=== PATIENT | male | born 1955 | race Caucasian/White ===

== ENCOUNTER 2018-02-12 15:03 | Inpatient (IN) | payer OTHER ==
[2018-02-12 16:55] VITALS: BMI 35.6
--- NOTE | 2018-02-12 19:45 | HP ---
CIWA Score - CIWA Score Nausea/Vomitin-No Nausea/No Vomiting Muscle Tremors: 2 Anxiety: 3 Agitation: 1-Slight > Activity Paroxysmal Sweats: 2 Orientation: 0-Oriented Tacttile Disturbances: 2-Mild Itch/Numbness/Burn (numbness on both hands) Auditory Disturbances: 1-Very Mild Visual Disturbances: 1-Very Mild Sensitivity Headache: 0-None Present CIWA-Ar Total Score: 12 Admission ROS S - HPI Chief Complaint: "I am here for detox" Allergies/Adverse Reactions: Allergies Allergy/AdvReac Type Severity Reaction Status Date / Time No Known Allergies Allergy Verified 02/12/18 18:18 History of Present Illness: 62 yo male with hx of alcohol, cocaine and nicotine dependence is here seeking detox. PMHX: OA (right knee), anxiety, depression, PSTD, Insomnia. Denies suicidal / homicidal ideation. Denies hx of suicide attempts but reports has had suicidal thoughts in the past. Last detox 4 months ago at [facility]. Longest period of sobriety 2 months. Search Terms: Jhonathan Ibrahim, 1955 Search Date: 02/12/2018 07:39:07 PM This report was requested by: Penelope Calderon | Reference #: [id number] Others' Prescriptions Patient Name: Jhonathan Ibrahim Date: 1955 Address: [address] [facility] [address] [place] [id number] Sex: Male Rx Written Rx Dispensed Drug Quantity Days Supply Prescriber Name 02/01/2018 02/01/2018 clonazepam 2 mg tablet 60 30 Pacannuayan, Joana 01/01/2018 01/01/2018 clonazepam 2 mg tablet 60 30 Pacannuayan, Joana 11/30/2017 11/30/2017 clonazepam 2 mg tablet 60 30 Pacannuayan, Joana 11/02/2017 11/02/2017 clonazepam 2 mg tablet 60 30 Pacannuayan, Joana 03/14/2017 03/14/2017 clonazepam 1 mg tablet 60 30 Pacannuayan, Joana Patient Name: Jhonathan Ibrahim Date: 1955 Address: [address] [place] [address] Sex: Male Rx Written Rx Dispensed Drug Quantity Days Supply Prescriber Name 09/27/2017 10/01/2017 clonazepam 2 mg tablet 60 30 Clayton Montes MD 08/28/2017 09/01/2017 clonazepam 2 mg tablet 60 30 Clayton Montes MD 08/28/2017 09/01/2017 zolpidem tartrate 10 mg tablet 30 30 Clayton Montes MD 07/26/2017 08/01/2017 zolpidem tartrate 10 mg tablet 30 30 Clayton Montes MD 07/26/2017 08/01/2017 clonazepam 2 mg tablet 60 30 Clayton Montes MD 07/03/2017 07/03/2017 clonazepam 2 mg tablet 60 30 JarekellaClayton diane MD 07/03/2017 07/03/2017 zolpidem tartrate 10 mg tablet 30 30 Clayton Montes MD 05/29/2017 06/06/2017 clonazepam 2 mg tablet 60 30 Clayton Montes MD 05/09/2017 05/09/2017 clonazepam 2 mg tablet 60 30 Clayton Montes MD 04/10/2017 04/10/2017 clonazepam 2 mg tablet 60 30 Clayton Montes MD 02/28/2017 02/28/2017 clonazepam 2 mg tablet 30 15 Clayton Montes MD Exam Limitations: No Limitations - Ebola screening Have you traveled outside of the country in the last 21 days: No Have you had contact with anyone from an Ebola affected area: No Have you been sick,other than usual withdrawal symptoms: No Do you have a fever: No - Review of Systems Constitutional: Chills, Changes in sleep, Other (weight gain) EENT: reports: Blurred Vision (wears glasses) Respiratory: reports: No Symptoms reported Cardiac: reports: No Symptoms Reported GI: reports: Other (hx lower intestinal ulcer 2 months ago tx at [facility]) : reports: No Symptoms Reported Musculoskeletal: reports: Back Pain, Joint Pain Integumentary: reports: Pruritus (under breast) Neuro: reports: Headache, Numbness (both hands) Endocrine: reports: Increased Thirst Hematology: reports: See HPI, Anemia (r/t to alcohol intake) Psychiatric: reports: Orientated x3, Depressed Other Systems: Reviewed and Negative Patient History - Patient Medical History Hx Anemia: Yes Hx Asthma: No Hx Chronic Obstructive Pulmonary Disease (COPD): No Hx Cancer: No Hx Cardiac Disorders: No Hx Congestive Heart Failure: No Hx Hypertension: No Hx Hypercholesterolemia: No Hx Pacemaker: No HX Cerebrovascular Accident: No Hx Seizures: No Hx Dementia: No Hx Diabetes: No Hx Gastrointestinal Disorders: No Hx Liver Disease: No Hx Genitourinary Disorders: No Hx Sexually Transmitted Disorders: No Hx Renal Disease (ESRD): No Hx Thyroid Disease: No Hx Human Immunodeficiency Virus (HIV): No (last tested 6 months ago, declines ) Hx Hepatitis C: No Hx Depression: Yes Hx Suicide Attempt: No Hx Bipolar Disorder: No Hx Schizophrenia: No - Patient Surgical History Past Surgical History: No Hx Neurologic Surgery: No Hx Cataract Extraction: No Hx Cardiac Surgery: No Hx Lung Surgery: No Hx Breast Surgery: No Hx Breast Biopsy: No Hx Abdominal Surgery: No Hx Appendectomy: No Hx Cholecystectomy: No Hx Genitourinary Surgery: No Hx Section: No Hx Orthopedic Surgery: Yes (right hand tendon release ) Anesthesia Reaction: No - PPD History Previous Implant?: Yes Documented Results: Negative w/o proof PPD to be Administered?: Yes - Reproductive History Patient is a Female of Child Bearing Age (11 -55 yrs old): No - Smoking Cessation Smoking history: Current every day smoker Aproximately how many cigarettes per day: 1 Hx Chewing Tobacco Use: No Initiated information on smoking cessation: Yes 'Breaking Loose' booklet given: 02/12/18 - Substance & Tx. History Hx Alcohol Use: Yes Hx Substance Use: Yes Substance Use Type: Alcohol Hx Substance Use Treatment: Yes (ast detox 4 months ago at [facility]) - Substances Abused Alcohol Route: Oral Frequency: Daily Amount used: liquor- 2 pint, Age of first use: 37 Date of Last Use: 02/11/18 Cocaine Route: Smoking Frequency: Daily Amount used: 1gm Age of first use: 34 Date of Last Use: 02/11/18 Family Disease History - Family Disease History Family Disease History: Heart Disease: Father (, [place] ), Other: Father, Mother (, unkown ) Admission Physical Exam BHS - Vital Signs Vital Signs: Vital Signs - 24 hr 02/12/18 16:54 Temperature 98.3 F Pulse Rate 70 Respiratory 18 Rate Blood Pressure 126/67 - Physical General Appearance: Yes: Nourished, Appropriately Dressed, Mild Distress, Irritable, Anxious HEENTM: Yes: EOMI, Hearing grossly Normal, Normal ENT Inspection, Normocephalic , Normal Voice, MIKEY, Pharynx Normal, Tm's normal Respiratory: Yes: Chest Non-Tender, Lungs Clear, Normal Breath Sounds, No Respiratory Distress, No Accessory Muscle Use Neck: Yes: No masses,lesions,Nodules, Trachea in good position Breast: Yes: Breast Exam Deferred Cardiology: Yes: Regular Rhythm, Regular Rate Abdominal: Yes: Normal Bowel Sounds, Non Tender, Soft, Protuberent Genitourinary: Yes: Within Normal Limits Back: Yes: Normal Inspection Musculoskeletal: Yes: full range of Motion, Gait Steady, Pelvis Stable, Back pain, Other (right knee pain) Extremities: Yes: Normal Capillary Refill, Normal Inspection, Normal Range of Motion, Non-Tender Neurological: Yes: casework manager II-XII NML intact, Fully Oriented, Alert, Motor Strength 5/5, Normal Mood/Affect Integumentary: Yes: Normal Color, Warm, Moist Lymphatic: Yes: Within Normal Limits - Diagnostic (1) Alcohol dependence with withdrawal Current Visit: Yes Status: Acute Qualifiers: Complication of substance-induced condition: uncomplicated Qualified Code(s ): F10.230 - Alcohol dependence with withdrawal, uncomplicated (2) Back pain Current Visit: Yes Status: Acute Qualifiers: Back pain location: low back pain Chronicity: unspecified Back pain laterality: midline Sciatica presence: without sciatica Qualified Code(s): M54.5 - Low back pain (3) Right knee pain Current Visit: Yes Status: Chronic Qualifiers: Chronicity: chronic Qualified Code(s): M25.561 - Pain in right knee; G89.29 - Other chronic pain; G89.29 - Other chronic pain (4) Cocaine dependence Current Visit: Yes Status: Acute (5) Obese Current Visit: Yes Status: Chronic Qualifiers: Obesity type: unspecified obesity type Obesity classification: adult class 2 (BMI 35 - 39.9) Serious obesity comorbidity presence: unspecified whether serious comorbidity present Cleared for Admission [facility] - Detox or Rehab [facility] Level of Care: Medically Managed Detox Regimen/Protocol: Librium [facility] Breath Alcohol Content Breath Alcohol Content: 0 Urine Drug Screen - Results Drug Screen Negative: No Urine Drug Screen Results: JOE-Cocaine
[2018-02-12] MEDS ORDERED: MAGNESIUM CITRATE 300 ML BOTTLE PO PRN (19:52)
[2018-02-12] MEDS ORDERED: P-EPHED 60MG/TRIPROLIDI 2.5MG TABLET PO PRN (19:52)
[2018-02-12] MEDS ORDERED: NICOTINE POLACRILEX 2 MG GUM BC PRN (19:52)
[2018-02-12] MEDS ORDERED: chlordiazePOXIDE HCL 25 MG CAPSULE PO PRN (19:52)
[2018-02-12] MEDS ORDERED: ACETAMINOPHEN 325 MG TABLET (FP) PO PRN (19:52)
[2018-02-12] MEDS ORDERED: guaiFENesin/D-METHORPHAN HB 10 ML UNIT-DOSE CUPS PO PRN (19:52)
[2018-02-12] MEDS ORDERED: MENTHOL/PHENOL 1 EACH UD MM PRN (19:52)
[2018-02-12] MEDS ORDERED: MAGNESIUM HYDROX 2400MG/30ML ORAL SUSPENSION 30 ML CUP PO PRN (19:52)
[2018-02-12] MEDS ORDERED: IBUPROFEN 400 MG TABLET (FP) PO PRN (19:52)
[2018-02-12] MEDS ORDERED: hydrOXYzine PAMOATE 50 MG CAPSULE (FP) PO PRN (19:52)
[2018-02-12] MEDS ORDERED: LOPERAMIDE HCL 2 MG CAPSULE PO PRN (19:52)
[2018-02-12] MEDS ORDERED: chlordiazePOXIDE HCL 25 MG CAPSULE PO ONE (19:52)
[2018-02-12] MEDS ORDERED: MELATONIN 5 MG TABLETS PO PRN (22:00)
[2018-02-12] MEDS: THIAMINE HCL 100 MG TABLET (FP) PO SCH (22:08)
[2018-02-12] MEDS: chlordiazePOXIDE HCL 25 MG CAPSULE PO SCH (22:08)
[2018-02-12] MEDS: METHYL SALICYLATE/MENTHOL OINT 30 GM TUBE TP SCH (22:09)
[2018-02-12 22:57] LABS: URINE APPEARANCE TURBID; URINE BILIRUBIN NEGATIVE (<2.0 mg/dL); URINE COLOR AMBER; URINE GLUCOSE (UA) NEGATIVE (NEGATIVE); URINE KETONE NEGATIVE (NEGATIVE); URINE LEUK ESTERASE NEGATIVE (NEGATIVE); URINE NITRITE NEGATIVE (NEGATIVE); URINE PROTEIN NEGATIVE (NEGATIVE); URINE UROBILINOGEN NEGATIVE mg/dL (0.2-1.0)
[2018-02-13] MEDS: MAG HYDROX/AL HYDROX/SIMETH 30 ML UNIT-DOSE CUP PO PRN ×2 (06:06→14:58)
[2018-02-13] MEDS: chlordiazePOXIDE HCL 25 MG CAPSULE PO SCH ×4 (06:06→22:14)
[2018-02-13] MEDS ORDERED: PANTOPRAZOLE 40 MG TABLET (FP) PO SCH (10:00)
[2018-02-13 10:12] LABS: HEMATOCRIT 41.5 % (35.4-49); HEMOGLOBIN 13.7 GM/dL (11.7-16.9); MCH 31.1 pg (25.7-33.7); MEAN CELL VOLUME 94.2 fl (80-96); MEAN PLT VOLUME 8.8 fl (7.5-11.1); PLATELET COUNT 263 K/MM3 (134-434); RBC 4.41 M/mm3 (4.00-5.60); RDW 15.5 % (11.9-15.9); WHITE BLOOD COUNT 8.2 K/mm3 (4.0-10.0)
--- NOTE | 2018-02-13 10:13 | PN ---
S CIWA - CIWA Score Nausea/Vomitin-No Nausea/No Vomiting Muscle Tremors: 4-Moderate,w/Arms Extend Anxiety: 4-Mod. Anxious/Guarded Agitation: 4-Moderately Restless Paroxysmal Sweats: 1-Minimal Palms Moist Orientation: 0-Oriented Tacttile Disturbances: 0-None Auditory Disturbances: 0-None Visual Disturbances: 0-None Headache: 0-None Present CIWA-Ar Total Score: 13 BHS Progress Note (SOAP) Subjective: ANXIETY,SWEATS,TREMORS. Objective: 02/13/18 10:12 Vital Signs 02/13/18 02/13/18 02/13/18 03:30 06:09 09:00 Temperature 96.8 F L 96.9 F L Pulse Rate 59 L 69 Respiratory 18 18 18 Rate Blood Pressure 104/69 132/85 Laboratory Tests 02/12/18 22:49 Urine Color Kayy Urine Appearance Turbid Urine pH 5.0 Ur Specific [place] 1.025 Urine Protein Negative Urine Glucose (UA) Negative Urine Ketones Negative Urine Blood Negative Urine Nitrite Negative Urine Bilirubin Negative Urine Urobilinogen Negative Ur Leukocyte Esterase Negative OTHER LABS PENDING Assessment: 02/13/18 10:12 WITHDRAWAL SX Plan: CONTINUE DETOX
[2018-02-13 10:25] LABS: CHLORIDE 107 mmol/L (98-107); POTASSIUM 4.3 mmol/L (3.5-5.1); SODIUM 142 mmol/L (136-145)
[2018-02-13] MEDS: METHYL SALICYLATE/MENTHOL OINT 30 GM TUBE TP SCH ×2 (10:33→22:16)
[2018-02-13] MEDS: PRENATAL VITAMINS W/ FOLIC ACID TABLET (FP) PO SCH (10:33)
[2018-02-13 10:44] LABS: ALBUMIN 3.3 g/dl (3.4-5.0); ALK PHOS 85 U/L (45-117); ANION GAP 7 (8-16); BILIRUBIN,TOTAL 0.3 mg/dL (0.2-1.0); BLOOD UREA NITROGEN 18 mg/dL (7-18); CALCIUM 8.4 mg/dL (8.5-10.1); CO2 28 mmol/L (21-32); CREATININE 1.2 mg/dL (0.7-1.3); GLUCOSE,RANDOM 117 mg/dL (74-106); SGOT/AST 23 U/L (15-37); SGPT/ALT 29 U/L (12-78); TOT PROT 6.8 g/dl (6.4-8.2)
--- NOTE | 2018-02-13 12:01 | EKG ---
Test Reason : Blood Pressure : / mmHG Vent. Rate : 065 BPM Atrial Rate : 065 BPM P-R Int : 134 ms QRS Dur : 090 ms QT Int : 412 ms P-R-T Axes : 041 040 027 degrees QTc Int : 428 ms NORMAL SINUS RHYTHM NORMAL ECG NO PREVIOUS ECGS AVAILABLE Confirmed by MD ISABEL, DON ([id number]) on 02/13/2018 12:00:37 PM Referred By: Confirmed By:DON HALL MD
--- NOTE | 2018-02-13 17:22 | PN ---
BHS Progress Note Note: Patient c/o gastric reflux and no relief with protonix 40mg. start Zantac 150 mg BID Increase fluids continue to monitor
--- NOTE | 2018-02-13 17:24 | CONSULT ---
[facility] Psychiatric Consult - Data Date of interview: 02/13/18 Admission source: [facility] Identifying data: First admission to [facility] for this 62 y/o male seeking detox treatment on for alcohol and cocaine dependence.Patient is single without children,domiciled,unemployed and supported on Public Assistance. Substance Abuse History: Confirmed by patient in this session.Smoking history: Current every day smoker. Aproximately how many cigarettes per day: 1. Hx Chewing Tobacco Use: No. Initiated information on smoking cessation: Yes. ' Breaking Loose' booklet given: 02/12/18. - Substance & Tx. History. Hx Alcohol Use: Yes. Hx Substance Use: Yes. Substance Use Type: Alcohol. Hx Substance Use Treatment: Yes (ast detox 4 months ago at [facility]). - Substances Abused. Alcohol. Route: Oral. Frequency: Daily. Amount used: liquor- 2 pint,. Age of first use: 37. Date of Last Use: 02/11/18. Cocaine. Route: Smoking. Frequency: Daily. Amount used: 1gm. Age of first use: 34. Date of Last Use: 02/11/18 Medical History: GERD,gastric ulcer and arthritis of right knee. Psychiatric History: Past psychiatric hospitalizations at [facility].Diagnosed with Stress Disorder.Prescribed seroquel 100 mg/hs + klonopin ( dose not recalled).Mr Ibrahim is seen for medication management by a private psychiatrist in [facility].One suicide about six years ago via deliberate self- exposure to oncoming traffic. Physical/Sexual Abuse/Trauma History: Patient denies. Additional Comment: Urine Drug Screen Results: JOE-Cocaine.Noted. Mental Status Exam - Mental Status Exam Alert and Oriented to: Time, Place, Person Cognitive Function: Good Patient Appearance: Well Groomed Mood: Nervous, Withdrawn, Anxious Affect: Mood Congruent Patient Behavior: Fatigued, Appropriate, Cooperative Speech Pattern: Clear, Appropriate Voice Loudness: Normal Thought Process: Intact, Goal Oriented Thought Disorder: Not Present Hallucinations: Denies Suicidal Ideation: Denies Homicidal Ideation: Denies Insight/Judgement: Poor Sleep: Poorly, Difficulty falling asleep Appetite: Good Muscle strength/Tone: Normal Gait/Station: Normal Psychiatric Findings - Problem List ([place] 1, 2,3) (1) Alcohol dependence with withdrawal Current Visit: Yes Status: Acute Qualifiers: Complication of substance-induced condition: uncomplicated Qualified Code(s ): F10.230 - Alcohol dependence with withdrawal, uncomplicated (2) Cocaine dependence Current Visit: Yes Status: Acute Qualifiers: Substance use status: uncomplicated Qualified Code(s): F14.20 - Cocaine dependence, uncomplicated (3) Substance induced mood disorder Current Visit: Yes Status: Acute (4) Insomnia Current Visit: Yes Status: Acute - Initial Treatment Plan Initial Treatment Plan: Psychoeducation.Sleep hygiene.Detoxification in progress.Seroquel 100 mg po hs.Side effects/benefits discussed with the patient.Mr Ibrahim agrees with this careplan.Observation.
[2018-02-13] MEDS: RANITIDINE HCL 150 MG TABLET (FP) PO SCH ×2 (17:40→22:14)
[2018-02-13] MEDS: THIAMINE HCL 100 MG TABLET (FP) PO SCH (22:14)
[2018-02-13] MEDS: QUEtiapine FUMARATE 100 MG TABLET (FP) PO SCH (22:15)
[2018-02-14] MEDS: chlordiazePOXIDE HCL 25 MG CAPSULE PO SCH ×3 (05:34→17:50)
[2018-02-14] MEDS: PRENATAL VITAMINS W/ FOLIC ACID TABLET (FP) PO SCH (10:12)
[2018-02-14] MEDS: RANITIDINE HCL 150 MG TABLET (FP) PO SCH ×2 (10:12→22:07)
[2018-02-14] MEDS: METHYL SALICYLATE/MENTHOL OINT 30 GM TUBE TP SCH ×2 (10:12→22:07)
--- NOTE | 2018-02-14 10:45 | PN ---
S CIWA - CIWA Score Nausea/Vomitin (DIARRHEA) Muscle Tremors: 4-Moderate,w/Arms Extend Anxiety: 4-Mod. Anxious/Guarded Agitation: 4-Moderately Restless Paroxysmal Sweats: 1-Minimal Palms Moist Orientation: 0-Oriented Tacttile Disturbances: 0-None Auditory Disturbances: 0-None Visual Disturbances: 0-None Headache: 0-None Present CIWA-Ar Total Score: 16 BHS Progress Note (SOAP) Subjective: ANXIETY, SWEATS,DIARRHEA. Objective: 02/14/18 10:44 Vital Signs 02/14/18 02/14/18 02/14/18 03:30 06:11 06:30 Temperature 96.9 F L Pulse Rate 63 Respiratory 18 16 18 Rate Blood Pressure 118/69 02/14/18 09:26 Temperature 95.8 F L Pulse Rate 66 Respiratory 20 Rate Blood Pressure 132/77 Laboratory Tests 02/12/18 02/13/18 02/13/18 22:49 07:00 07:00 WBC 8.2 RBC 4.41 Hgb 13.7 Hct 41.5 MCV 94.2 MCH 31.1 MCHC 33.0 RDW 15.5 Plt Count 263 MPV 8.8 Sodium 142 Potassium 4.3 Chloride 107 Carbon Dioxide 28 Anion Gap 7 L BUN 18 Creatinine 1.2 Creat Clearance w eGFR > 60 Random Glucose 117 H Calcium 8.4 L Total Bilirubin 0.3 AST 23 ALT 29 Alkaline Phosphatase 85 Total Protein 6.8 Albumin 3.3 L Urine Color Kayy Urine Appearance Turbid Urine pH 5.0 Ur Specific [place] 1.025 Urine Protein Negative Urine Glucose (UA) Negative Urine Ketones Negative Urine Blood Negative Urine Nitrite Negative Urine Bilirubin Negative Urine Urobilinogen Negative Ur Leukocyte Esterase Negative RPR Titer 02/13/18 07:00 WBC RBC Hgb Hct MCV MCH MCHC RDW Plt Count MPV Sodium Potassium Chloride Carbon Dioxide Anion Gap BUN Creatinine Creat Clearance w eGFR Random Glucose Calcium Total Bilirubin AST ALT Alkaline Phosphatase Total Protein Albumin Urine Color Urine Appearance Urine pH Ur Specific [place] Urine Protein Urine Glucose (UA) Urine Ketones Urine Blood Urine Nitrite Urine Bilirubin Urine Urobilinogen Ur Leukocyte Esterase RPR Titer Nonreactive Assessment: 02/14/18 10:44 WITHDRAWAL SX Plan: CONTINUE DETOX IMODIUM PRN FBS X 2 R/O HYPERGLYCEMIA
[2018-02-14] MEDS: MAG HYDROX/AL HYDROX/SIMETH 30 ML UNIT-DOSE CUP PO PRN (15:22)
[2018-02-14] MEDS: chlordiazePOXIDE 5 MG CAPSULE PO SCH (22:07)
[2018-02-14] MEDS: QUEtiapine FUMARATE 100 MG TABLET (FP) PO SCH (22:08)
[2018-02-14] MEDS: THIAMINE HCL 100 MG TABLET (FP) PO SCH (22:08)
[2018-02-15] MEDS: chlordiazePOXIDE 5 MG CAPSULE PO SCH ×3 (05:15→18:34)
[2018-02-15] MEDS: RANITIDINE HCL 150 MG TABLET (FP) PO SCH ×2 (10:33→22:08)
[2018-02-15] MEDS: METHYL SALICYLATE/MENTHOL OINT 30 GM TUBE TP SCH ×2 (10:34→22:07)
[2018-02-15] MEDS: PRENATAL VITAMINS W/ FOLIC ACID TABLET (FP) PO SCH (10:34)
--- NOTE | 2018-02-15 10:34 | PN ---
BHS Progress Note (SOAP) Subjective: PT REPORTS DECREASED ANXIETY,SWEATS,TREMORS.ALERT O X 3. Objective: 02/15/18 10:33 Vital Signs 02/15/18 02/15/18 02/15/18 03:30 05:50 06:30 Temperature 98.2 F Pulse Rate 62 Respiratory 18 18 18 Rate Blood Pressure 109/65 02/15/18 09:09 Temperature 98.6 F Pulse Rate 70 Respiratory 18 Rate Blood Pressure 117/77 Laboratory Tests 02/12/18 02/13/18 02/13/18 22:49 07:00 07:00 WBC 8.2 RBC 4.41 Hgb 13.7 Hct 41.5 MCV 94.2 MCH 31.1 MCHC 33.0 RDW 15.5 Plt Count 263 MPV 8.8 Sodium 142 Potassium 4.3 Chloride 107 Carbon Dioxide 28 Anion Gap 7 L BUN 18 Creatinine 1.2 Creat Clearance w eGFR > 60 POC Glucometer Random Glucose 117 H Calcium 8.4 L Total Bilirubin 0.3 AST 23 ALT 29 Alkaline Phosphatase 85 Total Protein 6.8 Albumin 3.3 L Urine Color Kayy Urine Appearance Turbid Urine pH 5.0 Ur Specific [place] 1.025 Urine Protein Negative Urine Glucose (UA) Negative Urine Ketones Negative Urine Blood Negative Urine Nitrite Negative Urine Bilirubin Negative Urine Urobilinogen Negative Ur Leukocyte Esterase Negative RPR Titer 02/13/18 02/15/18 07:00 05:15 WBC RBC Hgb Hct MCV MCH MCHC RDW Plt Count MPV Sodium Potassium Chloride Carbon Dioxide Anion Gap BUN Creatinine Creat Clearance w eGFR POC Glucometer 93 Random Glucose Calcium Total Bilirubin AST ALT Alkaline Phosphatase Total Protein Albumin Urine Color Urine Appearance Urine pH Ur Specific [place] Urine Protein Urine Glucose (UA) Urine Ketones Urine Blood Urine Nitrite Urine Bilirubin Urine Urobilinogen Ur Leukocyte Esterase RPR Titer Nonreactive Assessment: 02/15/18 10:33 MILD WITHDRAWAL SX Plan: CONTINUE DETOX
[2018-02-15] MEDS: THIAMINE HCL 100 MG TABLET (FP) PO SCH (22:07)
[2018-02-15] MEDS: QUEtiapine FUMARATE 100 MG TABLET (FP) PO SCH (22:08)
[2018-02-15] MEDS: chlordiazePOXIDE HCL 10 MG CAPSULE PO SCH (22:08)
[2018-02-16] MEDS: chlordiazePOXIDE HCL 10 MG CAPSULE PO SCH ×2 (05:59→10:10)
[2018-02-16 09:39] VITALS: BP 120/73; PULSE 86; TEMP 96.4
[2018-02-16] MEDS: METHYL SALICYLATE/MENTHOL OINT 30 GM TUBE TP SCH (10:10)
[2018-02-16] MEDS: PRENATAL VITAMINS W/ FOLIC ACID TABLET (FP) PO SCH (10:10)
[2018-02-16] MEDS: RANITIDINE HCL 150 MG TABLET (FP) PO SCH (10:10)
--- NOTE | 2018-02-16 10:20 | PN ---
BHS Progress Note (SOAP) Subjective: DETOX COMPLETED. ALERT O X 3. NAD. PT STATES HE IS GOING HOME FIRST TODAY AND WILL CALL FOR BED AVAILABILITY LATER. Objective: 02/16/18 10:19 Vital Signs 02/16/18 02/16/18 06:12 09:39 Temperature 96.8 F L 96.4 F L Pulse Rate 67 86 Respiratory 20 20 Rate Blood Pressure 91/62 120/73 Laboratory Tests 02/12/18 02/13/18 02/13/18 22:49 07:00 07:00 WBC 8.2 RBC 4.41 Hgb 13.7 Hct 41.5 MCV 94.2 MCH 31.1 MCHC 33.0 RDW 15.5 Plt Count 263 MPV 8.8 Sodium 142 Potassium 4.3 Chloride 107 Carbon Dioxide 28 Anion Gap 7 L BUN 18 Creatinine 1.2 Creat Clearance w eGFR > 60 POC Glucometer Random Glucose 117 H Calcium 8.4 L Total Bilirubin 0.3 AST 23 ALT 29 Alkaline Phosphatase 85 Total Protein 6.8 Albumin 3.3 L Urine Color Kayy Urine Appearance Turbid Urine pH 5.0 Ur Specific [place] 1.025 Urine Protein Negative Urine Glucose (UA) Negative Urine Ketones Negative Urine Blood Negative Urine Nitrite Negative Urine Bilirubin Negative Urine Urobilinogen Negative Ur Leukocyte Esterase Negative RPR Titer 02/13/18 02/15/18 07:00 05:15 WBC RBC Hgb Hct MCV MCH MCHC RDW Plt Count MPV Sodium Potassium Chloride Carbon Dioxide Anion Gap BUN Creatinine Creat Clearance w eGFR POC Glucometer 93 Random Glucose Calcium Total Bilirubin AST ALT Alkaline Phosphatase Total Protein Albumin Urine Color Urine Appearance Urine pH Ur Specific [place] Urine Protein Urine Glucose (UA) Urine Ketones Urine Blood Urine Nitrite Urine Bilirubin Urine Urobilinogen Ur Leukocyte Esterase RPR Titer Nonreactive Assessment: 02/16/18 10:19 MEDICALLY STABLE Plan: CONTINUE DETOX F/U WITH REHAB REFERRAL
--- NOTE | 2018-02-16 10:25 | DS ---
[facility] Detox Discharge Summary Admission Date: 02/12/18 Discharge Date: 02/16/18 - History Present History: Alcohol Dependence, Cocaine Dependence Additional Comments: DETOX COMPLETED. ALERT O X 3. NAD.PT REPORTS HE HAS PCP AT [address] WITH PMD DR[address] NORTON"(UNABLE TO REMEMBER COMPLETE NAMES OF CLINIC AND PMD). Pertinent Past History: PLEASE SE DX BELOW - Physical Exam Results Vital Signs: Vital Signs Temperature 96.4 F L 02/16/18 09:39 Pulse Rate 86 02/16/18 09:39 Respiratory Rate 20 02/16/18 09:39 Blood Pressure 120/73 02/16/18 09:39 O2 Sat by Pulse Oximetry (%) Pertinent Admission Physical Exam Findings: WITHDRAWAL SX Laboratory Tests 02/12/18 02/13/18 02/13/18 22:49 07:00 07:00 WBC 8.2 RBC 4.41 Hgb 13.7 Hct 41.5 MCV 94.2 MCH 31.1 MCHC 33.0 RDW 15.5 Plt Count 263 MPV 8.8 Sodium 142 Potassium 4.3 Chloride 107 Carbon Dioxide 28 Anion Gap 7 L BUN 18 Creatinine 1.2 Creat Clearance w eGFR > 60 POC Glucometer Random Glucose 117 H Calcium 8.4 L Total Bilirubin 0.3 AST 23 ALT 29 Alkaline Phosphatase 85 Total Protein 6.8 Albumin 3.3 L Urine Color Kayy Urine Appearance Turbid Urine pH 5.0 Ur Specific [place] 1.025 Urine Protein Negative Urine Glucose (UA) Negative Urine Ketones Negative Urine Blood Negative Urine Nitrite Negative Urine Bilirubin Negative Urine Urobilinogen Negative Ur Leukocyte Esterase Negative RPR Titer 02/13/18 02/15/18 07:00 05:15 WBC RBC Hgb Hct MCV MCH MCHC RDW Plt Count MPV Sodium Potassium Chloride Carbon Dioxide Anion Gap BUN Creatinine Creat Clearance w eGFR POC Glucometer 93 Random Glucose Calcium Total Bilirubin AST ALT Alkaline Phosphatase Total Protein Albumin Urine Color Urine Appearance Urine pH Ur Specific [place] Urine Protein Urine Glucose (UA) Urine Ketones Urine Blood Urine Nitrite Urine Bilirubin Urine Urobilinogen Ur Leukocyte Esterase RPR Titer Nonreactive - Medication Discharge Medications: Ambulatory Orders Omeprazole 20 mg PO DAILY 02/12/18 Quetiapine Fumarate [Seroquel -] 100 mg PO HS 02/12/18 Quetiapine Fumarate [Seroquel] 100 mg PO HS #30 tablet 02/14/18 - Diagnosis (1) Alcohol dependence with withdrawal Status: Acute Qualifiers: Complication of substance-induced condition: uncomplicated Qualified Code(s ): F10.230 - Alcohol dependence with withdrawal, uncomplicated (2) Back pain Status: Acute Qualifiers: Back pain location: low back pain Chronicity: unspecified Back pain laterality: midline Sciatica presence: without sciatica Qualified Code(s): M54.5 - Low back pain (3) Cocaine dependence Status: Acute Qualifiers: Substance use status: uncomplicated Qualified Code(s): F14.20 - Cocaine dependence, uncomplicated (4) Obese Status: Chronic Qualifiers: Obesity type: unspecified obesity type Obesity classification: adult class 2 (BMI 35 - 39.9) Serious obesity comorbidity presence: unspecified whether serious comorbidity present (5) Right knee pain Status: Chronic Qualifiers: Chronicity: chronic Qualified Code(s): M25.561 - Pain in right knee; G89.29 - Other chronic pain; G89.29 - Other chronic pain - AMA Did Patient Leave Against Medical Advice: No
--- NOTE | 2018-02-16 10:27 | DS ---
[facility] Detox Discharge Summary Admission Date: 02/12/18 - Physical Exam Results Vital Signs: Vital Signs Temperature 96.4 F L 02/16/18 09:39 Pulse Rate 86 02/16/18 09:39 Respiratory Rate 20 02/16/18 09:39 Blood Pressure 120/73 02/16/18 09:39 O2 Sat by Pulse Oximetry (%) - Treatment Hospital Course: Detox Protocol Followed, Detoxed Safely, Responded well, Discharged Condition Good, Rehab Referral Accepted Patient has Accepted a Rehab Referral to: [facility] - Medication Discharge Medications: Ambulatory Orders Omeprazole 20 mg PO DAILY 02/12/18 Quetiapine Fumarate [Seroquel -] 100 mg PO HS 02/12/18 Quetiapine Fumarate [Seroquel] 100 mg PO HS #30 tablet 02/14/18 - Diagnosis (1) Alcohol dependence with withdrawal Status: Acute Qualifiers: Complication of substance-induced condition: uncomplicated Qualified Code(s ): F10.230 - Alcohol dependence with withdrawal, uncomplicated (2) Back pain Status: Acute Qualifiers: Back pain location: low back pain Chronicity: unspecified Back pain laterality: midline Sciatica presence: without sciatica Qualified Code(s): M54.5 - Low back pain (3) Cocaine dependence Status: Acute Qualifiers: Substance use status: uncomplicated Qualified Code(s): F14.20 - Cocaine dependence, uncomplicated (4) Obese Status: Chronic Qualifiers: Obesity type: unspecified obesity type Obesity classification: adult class 2 (BMI 35 - 39.9) Serious obesity comorbidity presence: unspecified whether serious comorbidity present (5) Right knee pain Status: Chronic Qualifiers: Chronicity: chronic Qualified Code(s): M25.561 - Pain in right knee; G89.29 - Other chronic pain; G89.29 - Other chronic pain
== END 2018-02-16 09:15 | disposition home or self-care (01) | DRG 774 ==
LOC: YASAS 15:03 → Y3N 18:50
PROVIDERS: ADMIT Internal Medicine; ATTEND Internal Medicine
PROC: HZ2ZZZZ Detoxification Services for Substance Abuse Treatment (ICD-10-PCS; principal; 2018-02-12)
DX: F10.230 Alcohol dependence with withdrawal, uncomplicated (principal); F14.20 Cocaine dependence, uncomplicated; M54.5 Low back pain; M25.561 Pain in right knee; E66.9 Obesity, unspecified; Z68.35 Body mass index [BMI] 35.0-35.9, adult; G47.00 Insomnia, unspecified; Z91.5 Personal history of self-harm
CPT/HCPCS: 36415; 80053; 81003; 82962; 85027; 86593; 93005; 93010